=== PATIENT | male | born 1990 | race Hispanic/Latino ===

== ENCOUNTER 2017-03-17 21:51 | Emergency (ER) | payer OTHER ==
[~2017-03-17] VITALS: Ht 167.6 cm; Wt 157.4 kg
[2017-03-17] MEDS ORDERED: VENTOLIN HFA18 GM IH (23:00)
[2017-03-17] MEDS ORDERED: ZITHROMAX Z-PA250 MG PO (23:00)
[2017-03-17] MEDS ORDERED: MEDROL DOSEPAK4 MG PO (23:00)
[2017-03-17 23:36] VITALS: BP 130/80
== END 2017-03-17 23:37 | disposition home or self-care (01) ==
LOC: EME 21:51 → EXP 21:51
DX: J18.9 Pneumonia, unspecified organism (principal); J98.01 Acute bronchospasm
CPT/HCPCS: 71020; 94640; 99281; 99283; J7512